=== PATIENT | female | born 1980 | race Hispanic/Latino ===

== ENCOUNTER 2016-06-16 22:12 | Emergency (ER) | payer MEDICAID ==
[2016-06-16] MEDS ORDERED: Ibuprofen 400 MG TAB ONE (22:22)
[2016-06-17] MEDS ORDERED: SODIUM CHLORIDE 0.9% 1,000 ML ONE (12:36)
== END 2016-06-16 23:40 | disposition home or self-care (01) ==
LOC: ER 22:12
DX: J11.1 Influenza due to unidentified influenza virus with other respiratory manifestations (principal)
CPT/HCPCS: 87804